=== PATIENT | female | born 2005 | race Two or more races ===

== ENCOUNTER 2024-03-12 01:09 | Emergency (ER) | payer OTHER, SELFPAY ==
[2024-03-12 01:19] VITALS: BP 95/67
[2024-03-12 02:09] LABS: COVID-19 Antigen Negative (Negative)
[2024-03-12 03:51] VITALS: BP 102/66
[2024-03-12] MEDS: NSS 1000 IV (04:04)
[2024-03-12 04:29] LABS: % Basophils 0.3 % (0-2); % Immature Granulocytes 0.3 % (0-0.5); % Lymphocytes 8.4 % (20.5-51.1); % Monocytes 5.1 % (1.7-9.3); % Neutrophils 85.9 % (42.2-75.2); Absolute Basophils 0.1 10^3/uL (0-0.2); Absolute Immature Granulocytes 0.1 10^3/uL (0-0.05); Absolute Lymphocytes 1.3 10^3/uL (1.2-3.4); Absolute Monocytes 0.8 10^3/uL (0.1-0.6); Absolute Neutrophils 13.6 10^3/uL (1.4-6.5); Hematocrit 36.7 % (37.0-47.0); Hemoglobin 11.7 g/dL (12.0-16.0); Mean Corp Hgb Conc. 31.9 g/dL (33.0-37.0); Mean Corpuscular Hgb 28.3 pg (27.0-31.0); Mean Corpuscular Volume 88.9 fL (81.0-99.0); Mean Platelet Volume 8.8 fL (7.4-10.4); Nucleated Red Blood Cells % 0 %; Platelet Count 267 10^3/uL (130-400); Red Blood Cell Count 4.13 10^6/uL (4.20-5.40); Red Cell Dist. Width 12.6 % (11.5-14.5); White Blood Cell Count 15.8 10^3/uL (4.8-10.8)
[2024-03-12 04:39] LABS: Lactic Acid 0.8 mmol/L (0.7-2.0)
[2024-03-12 04:51] LABS: ALT (SGPT) 24 U/L (0-35); AST (SGOT) 25 U/L (14-36); Albumin 4.3 g/dl (3.5-5.0); Alkaline Phosphatase 69 U/L (38-126); Blood Urea Nitrogen 11 mg/dl (7-17); Calcium 9.3 mg/dl (8.4-10.2); Carbon Dioxide 20 mmol/L (22-30); Chloride 105 mmol/L (98-107); Glucose 110 mg/dl (70-99); Potassium 4.1 mmol/L (3.5-5.1); Sodium 137 mmol/L (135-145); Total Bilirubin 0.3 mg/dl (0.2-1.3); Total Protein 6.8 g/dl (6.3-8.2); eGFR > 60.00
[2024-03-12 04:57] LABS: Procalcitonin < 0.05 ng/ml (0.0-0.25)
[2024-03-12 04:57] LABS: Urine Albumin Negative (Neg - Trace); Urine Bilirubin Negative (Negative); Urine Character Clear (Clear); Urine Color Yellow; Urine Glucose Negative (Negative); Urine Ketone Trace (Negative); Urine Leukocyte Negative (Negative); Urine Nitrite Negative (Negative); Urine Occult Blood Negative (Negative); Urine Specific Gravity 1.025 (<1.030); Urine Urobilinogen Negative (Neg - 1+)
--- NOTE | 2024-03-12 06:37 | ED.GENMED ---
History of Present Illness
General
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
Source: patient and family
Time Seen by Provider: 03/12/24 03:57
Nursing documentation reviewed up to this point in time: agreed with
History of Present Illness
History of Present Illness:
Pleasant 18-year-old female presents with chills. She states that she left a tampon in for 17 hours and is concerned about toxic shock syndrome. Upon arrival patient had low-grade fever. Denies chest pain or shortness of breath. Denies any rash.
Review of Systems
Review of Systems
Allergies reviewed?: Yes
All Other Systems: ROS reviewed and negative except as documented in HPI and ROS
Constitutional: Reports fever and chills
EENT: Reports no symptoms
Respiratory: Reports no symptoms
Cardiac: Reports no symptoms
ABD/GI: Reports no symptoms
: Reports no symptoms
Musculoskeletal: Reports no symptoms
Skin: Reports no symptoms
Neurological: Reports no symptoms
Endocrine: Reports no symptoms
Hematologic/Lymphatic: Reports no symptoms
Psychiatric: Reports no symptoms
Phy Exam
General Physical Exam
General Presentation: well appearing and no apparent distress
General Skin: warm and dry
General Habitus: normal
General Mental: alert
General Hydration: appears well hydrated
ENT Exam
ENT Exam: EOMI, pharynx normal, neck supple and normocephalic
Eye Exam
Eye Exam: PERRL, cornea clear and conjunctiva normal
Cardiovascular Exam
Cardiovascular Exam: regular rate/rhythm, no edema, no murmur and normal peripheral pulses
Pulmonary Exam
Pulmonary Exam: lungs clear, no respiratory distress, no rales, no crackles, no rhonchi, no stridor, no wheezing and no cough
Gastrointestinal Exam
Gastrointestinal Exam: normal bowel sounds, non tender, soft, no organomegaly, no pulsatile mass and non distended
Neurological Exam
Neurological Exam: alert, oriented x3, no motor deficits and speech normal
Musculoskeletal Exam
Musculoskeletal Exam: full ROM and no edema
Skin Exam
Skin Exam: normal color, warm/dry, no rash and no petechia
Psychiatric Exam
Psychiatric Exam: normal mood/affect
Course
Orders/Labs/Results
Orders:
Orders
03/12/24 01:26
COVID-19 Antigen Urgent
Source: Nasal Swab
INF RAPID [Influenza A+B Rapid Molecular] Urgent
SKYLER Source: Nasal Swab
Specimen Description:
03/12/24 03:54
0.9% Sodium Chloride 1000 ml [Nss] 1,000 ml IV BOLUS
03/12/24 03:55
Test Result ONCE
03/12/24 04:06
Complete Blood Count/With Diff Urgent
Comprehensive Metabolic Panel Urgent
HCG, Serum Qualitative Screen Urgent
Lactic Acid Urgent
Procalcitonin Urgent
PCT Algorithmm Indication: Sepsis
03/12/24 04:51
Urinalysis Reflex To Culture Urgent
Date Specimen was Collected: 03/12/24
Time Specimen was Collected: 04:42
Abnormal Lab Results
03/12/24 03/12/24
04:06 04:51
WBC 15.8 H 10^3/uL
(4.8-10.8)
RBC 4.13 L 10^6/uL
(4.20-5.40)
Hgb 11.7 L g/dL
(12.0-16.0)
Hct 36.7 L %
(37.0-47.0)
MCHC 31.9 L g/dL
(33.0-37.0)
Abs Immat Gran (auto) 0.1 H 10^3/uL
(0-0.05)
Absolute Neuts (auto) 13.6 H 10^3/uL
(1.4-6.5)
Absolute Monos (auto) 0.8 H 10^3/uL
(0.1-0.6)
Neutrophils % 85.9 H %
(42.2-75.2)
Lymphocytes % 8.4 L %
(20.5-51.1)
Carbon Dioxide 20 L mmol/L
(22-30)
Glucose 110 H mg/dl
(70-99)
Urine Ketones Trace A
(Negative)
03/12/24 04:06
03/12/24 04:06
Vital Signs
Initial and Last Documented VS:
Initial Vital Signs
Temp Pulse Resp BP Pulse Ox
100.9 F H 110 18 95/67 95
03/12/24 01:19 03/12/24 01:19 03/12/24 01:19 03/12/24 01:19 03/12/24 01:19
Last Documented Vital Signs
Temp Pulse Resp BP Pulse Ox
100.2 F 82 18 102/66 99
03/12/24 06:00 03/12/24 06:00 03/12/24 06:00 03/12/24 03:51 03/12/24 06:00
*Critical Care Note
Total Time (30-74mins, 75-104mins- exclusive of procedures): Not Applicable
Update Note
Update Note:
03/12/2024 0637 Am: Patient states that she is feeling much better. She wishes to be discharged home. I did offer her observational admission but at this point she states that she feels well enough to go home. Her family member states that he is
retired and will keep an eye on her today. We did discuss return to ER instructions at length. She has no further questions. I have full confidence that she will return to the emergency department with any changing or worsening of symptoms.
ED Attending Note
-
Portions of this chart may have been created with voice recognition software.� Occasional wrong word or��sound alike� substitutions may have occurred due to the inherent limitations of voice recognition software.
Discharge Plan
Departure
Patient Disposition: Home (Routine Discharge)
Date of Disposition: 03/12/24
Time of Disposition: 06:38
Patient with high blood pressure during this ER visit?: No
Condition: Good
Discharge Problem:
Abdominal pain
Instructions: Abdominal Pain, BLOOD PRESSURE
Referrals:
[facility] [Provider Group]
[facility] [Outside]
[facility] [Outside]
UNKNOWN - PT DOES,NOT KNOW [Family Provider] -
Interventions
Interventions:
*Risk Screen - Suicide Last Done: 03/12/24 01:19
*General Assessment Last Done: 03/12/24 01:19
*Neglect/Abuse Screening Last Done: 03/12/24 01:19
ED- Fall Risk Assessment Last Done: 03/12/24 04:10
*ED COVID-19 Vaccine History Last Done: 03/12/24 01:19
*Nursing Disposition Last Done: 03/12/24 07:26
ED-Female Genitourinary Assessment Last Done: 03/12/24 03:54
Discharge Date and Time
Discharge Date/Time: 03/12/24 07:27
Print Language: ESTONIAN
[2024-03-12 07:09] LABS: HCG, Serum Qualitative Screen Negative
== END 2024-03-12 07:27 | disposition home or self-care (01) ==
LOC: EMR 01:09
PROVIDERS: EMERGENCY PHYSICIAN Student in an Organized Health Care Education/Training Program
DX: R10.9 Unspecified abdominal pain (principal)
CPT/HCPCS: 99284; 96360; 80053; 81003; 83605; 84145; 84703; 85025; 87502; 87811